=== PATIENT | female | born 1955 | race Caucasian/White ===

== ENCOUNTER 2018-09-15 18:05 | Emergency (ER) | payer MEDICAID ==
[~2018-09-15] VITALS: Ht 149.9 cm; Wt 70.8 kg
[2018-09-15 18:11] VITALS: Ht 149.9 cm; Wt 70.8 kg
[2018-09-15 20:26] LABS: BASOPHIL % 0.4 % (0-2); PLATELET COUNT 171 x10^3mcL (130-400); RED CELL DISTRIBUTION WIDTH 12.9 % (11.5-14.5)
[2018-09-15 20:52] LABS: CALCIUM 8.9 mg/dL (8.5-10.1); CARBON DIOXIDE 25.8 mmol/L (21-32); CHLORIDE SERUM 104 mmol/L (98-107); CREATININE SERUM 0.6 mg/dL (0.6-1.0); GFR1 > 60 mL/min; GLUCOSE SERUM 130 mg/dL (74-106); POTASSIUM SERUM 4.3 mmol/L (3.5-5.1); SODIUM SERUM 140 mmol/L (136-145)
[2018-09-15 20:55] LABS: ALBUMIN 3.9 g/dL (3.4-5.0); ALKALINE PHOSPHATASE 88 U/L (46-116); ALT/SGPT 24 U/L (14-59); AST/SGOT 21 U/L (15-37); BILIRUBIN TOTAL 0.81 mg/dL (0.20-1.00); HDL CHOLESTEROL 42 mg/dL (40-60); PHOSPHOROUS 3.8 mg/dL (2.5-4.9)
[2018-09-15 20:56] LABS: CHOLESTEROL 205 mg/dL (<200); TOTAL PROTEIN, SERUM 8.5 g/dL (6.4-8.2)
[2018-09-15 21:19] VITALS: BP 132/59
== END 2018-09-15 21:19 | disposition home or self-care (01) ==
LOC: ED 18:05
PROVIDERS: Emergency Medicine
DX: R55 Syncope and collapse (principal); K04.7 Periapical abscess without sinus; I10 Essential (primary) hypertension; E78.5 Hyperlipidemia, unspecified
CPT/HCPCS: 36415; J0696; J3010; Q0092